=== PATIENT | female | born 1975 | race Caucasian/White ===

== ENCOUNTER 2016-06-30 07:22 | Inpatient (IN) | payer OTHER ==
[~2016-06-30] VITALS: Ht 160 cm; Wt 75.5 kg
--- NOTE | ~2016-06-30 | DS ---
ADMIT: 06/30/2016 RM/LOC: 505 [facility] MR#: [id number] [address] [address] SUSAN HUNT [address] [place] [address] General Discharge Summary SEX: F AGE: 41 : 1975 ADMISSION DATE: 06/30/2016 DISCHARGE DATE: 07/02/2016 SERVICE: Neurosurgery. REASON FOR ADMISSION: 1. Cervical disk bulge. 2. Cervical radiculopathy. 3. Numbness in hands. 4. Hand weakness. PROCEDURES DONE: Anterior cervical diskectomy and fusion at cervical 5 through 7. HOSPITAL COURSE: Ms. Hunt tolerated her procedure well. Postoperatively, she was taken to the Med/Surg floor for monitoring and care. She did work with Physical Therapy and Occupational Therapy and tolerated this quite well. Postop day #1, she was awake and alert. She was afebrile, and her vital signs were stable. She was having some nausea and vomiting. She was moving all extremities x4 with 4/5 strength in her hands. Her incision was clean, dry, and intact. Her AMBER drain was patent with just a small amount of serosanguineous drainage. Her pain medication was changed due to her nausea and vomiting. She continued to work with Physical Therapy and Occupational Therapy and tolerated this quite well. Postop day #2, she was awake and alert. Her vital signs were stable. She was moving all extremities x4 with 5/5 strength. Her incision was clean, dry, and intact. Her AMBER drain was discontinued without difficulty. There was no hematoma or cerebrospinal fluid accumulation or bloody drainage noted. She was ambulating, urinating, and defecating per her norm and was requesting discharge home. DISCHARGE CONDITION: Good. MEDICATIONS: 1. Ultram 50 mg p.o. q.4 hours p.r.n. 2. Valium 5 mg 1-2 p.o. q.8 hours p.r.n. 3. Sertraline 100 mg p.o. daily. 4. Cyclobenzaprine 10 mg 1 tablet t.i.d. p.r.n. 5. Alprazolam 0.5 mg b.i.d. p.r.n. 6. Fioricet 1-2 tablets p.o. q.4 hours p.r.n. 7. Biotin 5000 mcg daily. DISCHARGE INSTRUCTIONS: She can have a regular diet. She may shower, she ADMIT: 06/30/2016 RM/LOC: 505 [facility] MR#: [id number] [address] [address] ANIAK SUSAN [facility] [address] [place] [address] General Discharge Summary SEX: F AGE: 41 : 1975 should not take any tub baths, she should pat her incision dry. She should not lift anything greater than 15 pounds. She should not take any nicotine. She should not take any NSAIDs. She should not drive until she is seen in clinic for followup. She will call with any questions or concerns including neurological worsening, signs or symptoms of infection, or any other issues. FOLLOWUP: She will follow up in clinic with Mei in 2 weeks. DISPOSITION: She was discharged home. Total [id number] time for the discharge planning and care coordination was 30 minutes. Mei King APRN / Rashawn Pina MD / jennifer JOB #: [id number] CC: Rashawn Pina MD, Attending Physician FAMILY PHYSICIAN, Family Physician
--- NOTE | 2016-07-03 07:36 | OR ---
ADMIT: 06/30/2016 RM/LOC: 505 [facility] MR#: [id number] [address] [address] SUSAN HUNT [address] [place] [address] Operative/Delivery Room Report SEX: F AGE: 41 : 1975 SURGERY DATE: 06/30/2016 SURGEON: Rashawn Pina MD PREOPERATIVE DIAGNOSIS: Cervical radiculopathy from herniated nucleus pulposus, 5-6 and 6-7. POSTOP DIAGNOSIS: Cervical radiculopathy from herniated nucleus pulposus, 5-6 and 6-7. PROCEDURES: 1. Anterior cervical diskectomy, 5-6 and 6-7 for direct decompression of the thecal sac and neural foramen bilaterally. 2. Anterior arthrodesis, cervical 5-6 and 6-7 with implantation of structural cadaveric allograft. 3. Anterior instrumentation. Cervical 5, 6, and 7. 4. Intraoperative use of fluoroscopy with physician interpretation of films. IMPLEMENTATION DIRECTOR: Mei King APRN. DESCRIPTION: After gaining informed consent, the patient was taken the operative theater, placed under general endotracheal anesthesia in supine position. A time-out was utilized to ascertain the correct site and side of surgery as well as other pertinent patient historical information. Counts were obtained at beginning and end of the case, no change betwixt the two. Raza-Wells tongs were placed 2 fingerbreadths superior to the pinna with 10 pounds of traction which was removed at the time of instrumentation. The incision was fashioned in a horizontal fashion in the anterior neck, it was then taken down longitudinally splitting the platysma and then entering the paratracheal and paraesophageal groove down to the anterior spinal column. Marker was then placed at the cervical 5-6 and the longus colli were taken up off from medial to lateral to allow cuff for the Esl Tutor retractor system to sit in. Once this was performed, the discectomy was tended to. The anterior spinal column was gardened with the Leksell rongeur and then disks at 5-6 and 6-7 were resected with various curettes, rongeurs, and then high-speed drill, taking down the posterior longitudinal ligament, sounding into the neural foramen bilaterally with no sign of further compressive etiology either at 5-6 or 6-7 with a widely patent appearing disk level and no damage apparent to the thecal sac. Once this was completed, pristine hemostasis was obtained and a structural cadaveric allograft spacer was placed, 7 mm lordotic at 5-6 and 8 mm lordotic at 6-7. The anterior plate was then brought into the field. The drill holes were decorticated and self drilling, self tapping 12 mm BiggerBoat[employer] screws were placed through the plate after they were vancomycin powder coated. Pristine hemostasis was obtained. A AMBER drain was daylighted out and attention was turned to closure. The wound was closed with simple inverted interrupted 2-0 Vicryl in the hypodermic tissue and subcuticular 3-0 Stratafix on the skin with Steri-Strips ADMIT: 06/30/2016 RM/LOC: 505 [facility] MR#: [id number] [address] [place] [id number] SUSAN HUNT [address] [place] [address] Operative/Delivery Room Report SEX: F AGE: 41 : 1975 over that. Ms. King assisted with suction and retraction and closure at the end of the case. COMPLICATIONS: None. ESTIMATED BLOOD LOSS: Charted. SPECIMEN: Disks. DISPOSITION: Extubated and taken to postanesthesia care unit. Rashawn Pina MD/ jennifer JOB #: [id number] CC: Rashawn Pina, Attending Physician FAMILY PHYSICIAN, Family Physician
[2016-07-03] MEDS ORDERED: XANAX DPS0.5 MG PO (17:08)
[2016-07-03] MEDS ORDERED: FIORINAL PO (17:08)
[2016-07-03] MEDS ORDERED: ZOLOFT DPS100 MG PO (17:08)
[2016-07-03] MEDS ORDERED: FLEXERIL-DPS10 MG PO (17:08)
[2016-07-03] MEDS ORDERED: BIOTIN1000 MCG PO (17:09)
[2016-07-03] MEDS ORDERED: VALIUM-DPS5 MG PO (17:12)
[2016-07-03] MEDS ORDERED: ULTRAM DPS50 MG PO (17:12)
== END 2016-07-02 13:25 | disposition home or self-care (01) | DRG 473 ==
LOC: WOR 07:22 → 5MS 10:10 → EDSTATUS 11:13 → 5MS 07-02 13:25
PROVIDERS: ADMIT Neurological Surgery
DX: M50.20 Other cervical disc displacement, unspecified cervical region (principal); F41.8 Other specified anxiety disorders; M54.12 Radiculopathy, cervical region; R20.2 Paresthesia of skin; M62.81 Muscle weakness (generalized); M54.2 Cervicalgia; F17.210 Nicotine dependence, cigarettes, uncomplicated

== ENCOUNTER 2016-07-06 21:53 | Emergency (ER) | payer OTHER ==
[~2016-07-06 21:53] MED LIST: BIOTIN1000 MCG PO; FIORINAL PO; FLEXERIL-DPS10 MG PO; ULTRAM DPS50 MG PO; VALIUM-DPS5 MG PO; XANAX DPS0.5 MG PO; ZOLOFT DPS100 MG PO
--- NOTE | 2016-07-09 07:04 | ER ---
ADMIT: 07/06/2016 RM/LOC: ER [facility] MR#: [id number] [address] [address] SUSAN HUNT [address] [place] [address] Emergency Room Report SEX: F AGE: 41 : 1975 DATE: 07/06/2016 HISTORY OF PRESENT ILLNESS: The patient is a 41-year-old female with past medical history of neck pain and low back pain, status post anterior diskectomy on Sunday, came to the ER with chief complaint of increased pain, which is not controlled with Ultram 100 mg q.4 hours and Valium 10 mg t.i.d. The patient denies any new numbness, tingling, or weakness. The patient also complains of temperature of 101 at home yesterday and did not take any medications for that. The patient complains of some sore throat without any runny nose or cough. The patient denies any shortness of breath or abdominal pain or back pain. The patient has recently been followed up by the Neurosurgery Clinic. PHYSICAL EXAMINATION: VITAL SIGNS: The patient was afebrile in the ER, in no distress. Vitals are normal. HEENT: Head and neck; noncontributory. In the base of the neck, the surgical wound is clean and dry without erythema or discharge or fluctuation. In the oropharynx, the patient had erythematous oropharynx without any exudates. CHEST: Clear bilaterally. HEART: Normal heart sounds. ABDOMEN: Soft. EXTREMITIES: There is no swelling of the lower extremities and no tenderness on the lower extremities. Chest x-ray did not show any obvious infiltration. Urine was negative for any infections too. The patient received the last dose of Ultram at 7 p.m. The patient received a dose of Percocet 10/325 mg, which per patient comfortably relieved the pain. Dr. Colindres, neurosurgeon was contacted and he is already on board and he mentioned that the patient can be discharged to home with changing the Ultram to Percocet and Keflex p.o. The patient is stable to be discharged to home with followup with the primary care doctor and Neurosurgery Clinic as needed. Ayden Martines MD/ jennifer JOB #: [id number] CC: Ayden Martines MD, Attending Physician Chel Leroy NP, Family Physician
== END 2016-07-07 00:50 | disposition home or self-care (01) ==
LOC: ER 21:53
DX: G89.18 Other acute postprocedural pain (principal); M54.2 Cervicalgia; F17.200 Nicotine dependence, unspecified, uncomplicated; Z90.710 Acquired absence of both cervix and uterus; Z79.899 Other long term (current) drug therapy